=== PATIENT | female | born 1950 | race Caucasian/White ===

== ENCOUNTER 2023-02-19 19:54 | Inpatient (IN) | payer MEDICARE, MEDICAID ==
[2023-02-19] MEDS ORDERED: Acetaminophen 325 MG TAB PO PRN (23:15)
[2023-02-20] MEDS ORDERED: Sodium Chloride 0.9% 1,000 ML IV SCH (00:45)
[2023-02-20] MEDS: Morphine 4 MG/ML VIAL SLOW IVP PRN ×3 (01:11→15:25)
[2023-02-20] MEDS: Ondansetron PF 4 MG/2 ML Vial IVP PRN (01:14)
[2023-02-20 01:51] VITALS: BMI 22.3
[2023-02-20] MEDS: Azithromycin 500 MG in Sodium Chloride 0.9% 250 ML 250 ML IVPB SCH (02:45)
[2023-02-20 06:11] LABS: #Basophils 0.1 thou/uL (0.0-0.2); #Eosinphils 2.8 thou/uL (0.0-0.7); #Neutrophils 10.2 thou/uL (1.40-6.50); %Basophils 0.6 % (0.0-1.0); %Eosinophils 15.4 % (0.0-10.0); %Lymphocytes 15.2 % (21.0-51.0); %Monocytes 11.3 % (0.0-10.0); %Neutrophils 56.9 % (42.0-75.0); Hematocrit 36.9 % (36.0-47.0); Hemoglobin 11.1 g/dL (12.0-16.0); Mean Corpuscular HGB CONC 30.1 g/dL (32.0-36.0); Mean Corpuscular Hemoglobin 27.6 pg (27.0-31.0); Mean Corpuscular Volume 91.8 fl (78.0-98.0); Mean Platelet Volume 9.4 fL (7.4-10.4); Platelet Count 411 10x3/uL (130-400); RBC Distribution Width 14.6 % (11.5-14.5); Red Blood Cell (RBC) Count 4.02 mill/uL (4.20-5.40); White Blood Cell (WBC) Count 17.9 10x3/uL (4.8-10.8)
[2023-02-20 06:59] LABS: Anion Gap 19 mmol/L (10-20); BUN (Urea Nitrogen) 10 mg/dL (9.8-20.1); Calc. Creatinine Clearance 90 mL/min (70-130); Calcium 9.1 mg/dL (7.8-10.44); Carbon Dioxide 24 mmol/L (23-31); Chloride 104 mmol/L (98-107); Estimated GFR 98; Glucose 77 mg/dL (83-110); Magnesium 1.8 mg/dL (1.6-2.6); Potassium 3.7 mmol/L (3.5-5.1); Sodium 143 mmol/L (136-145)
[2023-02-20] MEDS: HYDROcodone/Acetaminophen 7.5/325 mg Tablet PO PRN ×2 (10:41→21:56)
[2023-02-20] MEDS ORDERED: Sodium Bicarbonate 2.5 MEQ/5 ML SDV ONE ×2 (11:37→13:05)
[2023-02-20] MEDS ORDERED: Midazolam HCl 2 mg/2 ml Vial ONE (11:38)
[2023-02-20] MEDS ORDERED: fentaNYL 50 mcg/mL 1 mL Vial ONE (11:38)
[2023-02-20] MEDS ORDERED: Lidocaine 1% PF 5 ML VIAL ONE (11:38)
[2023-02-20] MEDS ORDERED: Lorazepam 2 MG/ML VIAL SLOW IVP SCH (12:00)
[2023-02-20] MEDS ORDERED: Iopamidol 370 76% 100 ML VIAL ONE (12:48)
[2023-02-20] MEDS: cefTRIAXone\\ROCEPHIN 1 GM in Sodium Chloride 0.9% 100 ML IVPB SCH (17:36)
[2023-02-21] MEDS: Azithromycin 500 MG in Sodium Chloride 0.9% 250 ML 250 ML IVPB SCH (02:45)
[2023-02-21 06:39] LABS: #Basophils 0.1 thou/uL (0.0-0.2); #Eosinphils 2.8 thou/uL (0.0-0.7); #Monocytes 1.4 thou/uL (0.11-0.59); #Neutrophils 8.3 thou/uL (1.40-6.50); %Basophils 0.4 % (0.0-1.0); %Eosinophils 19.7 % (0.0-10.0); %Lymphocytes 11.8 % (21.0-51.0); %Monocytes 9.9 % (0.0-10.0); %Neutrophils 57.6 % (42.0-75.0); Hematocrit 33.4 % (36.0-47.0); Hemoglobin 10.1 g/dL (12.0-16.0); Mean Corpuscular HGB CONC 30.2 g/dL (32.0-36.0); Mean Corpuscular Hemoglobin 27.8 pg (27.0-31.0); Mean Platelet Volume 9.5 fL (7.4-10.4); Platelet Count 382 10x3/uL (130-400); RBC Distribution Width 14.4 % (11.5-14.5); Red Blood Cell (RBC) Count 3.63 mill/uL (4.20-5.40); White Blood Cell (WBC) Count 14.3 10x3/uL (4.8-10.8)
[2023-02-21 07:12] LABS: Anion Gap 16 mmol/L (10-20); BUN (Urea Nitrogen) 6 mg/dL (9.8-20.1); Calc. Creatinine Clearance 99 mL/min (70-130); Calcium 8.9 mg/dL (7.8-10.44); Carbon Dioxide 25 mmol/L (23-31); Chloride 103 mmol/L (98-107); Estimated GFR 100; Glucose 70 mg/dL (83-110); Magnesium 1.7 mg/dL (1.6-2.6); Potassium 3.5 mmol/L (3.5-5.1); Sodium 140 mmol/L (136-145)
[2023-02-21] MEDS ORDERED: Lorazepam 2 MG/ML VIAL SLOW IVP SCH (09:00)
[2023-02-21] MEDS ORDERED: Dexamethasone 4 mg/ml Vial SLOW IVP SCH (12:45)
[2023-02-21] MEDS: HYDROcodone/Acetaminophen 7.5/325 mg Tablet PO PRN (14:23)
[2023-02-21] MEDS: cefTRIAXone\\ROCEPHIN 1 GM in Sodium Chloride 0.9% 100 ML IVPB SCH (18:06)
[2023-02-21] MEDS: Ondansetron PF 4 MG/2 ML Vial IVP PRN (21:17)
[2023-02-21] MEDS: Morphine 4 MG/ML VIAL SLOW IVP PRN (21:17)
[2023-02-21] MEDS: Dexamethasone 4 mg/ml Vial SLOW IVP SCH (21:17)
[2023-02-22] MEDS: Azithromycin 500 MG in Sodium Chloride 0.9% 250 ML 250 ML IVPB SCH (02:00)
[2023-02-22 06:55] LABS: #Eosinphils 0.1 thou/uL (0.0-0.7); #Monocytes 0.3 thou/uL (0.11-0.59); #Neutrophils 9.9 thou/uL (1.40-6.50); %Basophils 0.2 % (0.0-1.0); %Eosinophils 0.9 % (0.0-10.0); %Lymphocytes 8.3 % (21.0-51.0); %Monocytes 2.8 % (0.0-10.0); %Neutrophils 87.2 % (42.0-75.0); Hematocrit 32.1 % (36.0-47.0); Hemoglobin 10.1 g/dL (12.0-16.0); Mean Corpuscular HGB CONC 31.5 g/dL (32.0-36.0); Mean Corpuscular Hemoglobin 27.5 pg (27.0-31.0); Mean Corpuscular Volume 87.5 fl (78.0-98.0); Mean Platelet Volume 9.6 fL (7.4-10.4); Platelet Count 361 10x3/uL (130-400); RBC Distribution Width 14.2 % (11.5-14.5); Red Blood Cell (RBC) Count 3.67 mill/uL (4.20-5.40); White Blood Cell (WBC) Count 11.4 10x3/uL (4.8-10.8)
[2023-02-22 07:27] LABS: Anion Gap 13 mmol/L (10-20); BUN (Urea Nitrogen) 5 mg/dL (9.8-20.1); Calc. Creatinine Clearance 93 mL/min (70-130); Calcium 9.1 mg/dL (7.8-10.44); Carbon Dioxide 30 mmol/L (23-31); Chloride 98 mmol/L (98-107); Estimated GFR 99; Glucose 162 mg/dL (83-110); Magnesium 1.5 mg/dL (1.6-2.6); Sodium 138 mmol/L (136-145)
[2023-02-22] MEDS: Dexamethasone 4 mg/ml Vial SLOW IVP SCH ×2 (09:09→19:55)
[2023-02-22] MEDS: HYDROcodone/Acetaminophen 7.5/325 mg Tablet PO PRN ×3 (10:09→19:56)
[2023-02-22] MEDS: cefTRIAXone\\ROCEPHIN 1 GM in Sodium Chloride 0.9% 100 ML IVPB SCH (17:54)
[2023-02-23] MEDS: Melatonin 3 MG TAB PO PRN ×2 (01:37→20:36)
[2023-02-23] MEDS: Azithromycin 500 MG in Sodium Chloride 0.9% 250 ML 250 ML IVPB SCH (01:39)
[2023-02-23] MEDS ORDERED: FLU VACC QS2023(65UP)/MF59C/PF 60 MCG/0.5 ML SYRINGE IM ONE (09:00)
[2023-02-23] MEDS: Morphine 4 MG/ML VIAL SLOW IVP PRN (09:14)
[2023-02-23] MEDS: Dexamethasone 4 mg/ml Vial SLOW IVP SCH ×2 (09:14→20:34)
[2023-02-23] MEDS: HYDROcodone/Acetaminophen 7.5/325 mg Tablet PO PRN ×2 (14:44→20:35)
[2023-02-23] MEDS: cefTRIAXone\\ROCEPHIN 1 GM in Sodium Chloride 0.9% 100 ML IVPB SCH (17:46)
[2023-02-23] MEDS: Famotidine 20 MG TAB PO SCH (20:34)
[2023-02-24] MEDS: Azithromycin 500 MG in Sodium Chloride 0.9% 250 ML 250 ML IVPB SCH (02:22)
[2023-02-24] MEDS: Dexamethasone 4 mg/ml Vial SLOW IVP SCH ×2 (08:46→20:23)
[2023-02-24] MEDS: Famotidine 20 MG TAB PO SCH ×2 (08:46→20:23)
[2023-02-24] MEDS: Morphine 4 MG/ML VIAL SLOW IVP PRN (08:53)
[2023-02-24] MEDS: HYDROcodone/Acetaminophen 7.5/325 mg Tablet PO PRN ×3 (14:22→21:43)
[2023-02-24] MEDS: cefTRIAXone\\ROCEPHIN 1 GM in Sodium Chloride 0.9% 100 ML IVPB SCH (17:33)
[2023-02-24] MEDS: Melatonin 3 MG TAB PO PRN (20:23)
[2023-02-25] MEDS: Azithromycin 500 MG in Sodium Chloride 0.9% 250 ML 250 ML IVPB SCH (02:02)
[2023-02-25 06:03] LABS: #Eosinphils 0.2 thou/uL (0.0-0.7); #Monocytes 1.4 thou/uL (0.11-0.59); #Neutrophils 13.7 thou/uL (1.40-6.50); %Basophils 0.1 % (0.0-1.0); %Lymphocytes 9.5 % (21.0-51.0); %Monocytes 8.4 % (0.0-10.0); %Neutrophils 79.4 % (42.0-75.0); Hematocrit 33.1 % (36.0-47.0); Hemoglobin 10.4 g/dL (12.0-16.0); Mean Corpuscular HGB CONC 31.4 g/dL (32.0-36.0); Mean Corpuscular Hemoglobin 27.6 pg (27.0-31.0); Mean Corpuscular Volume 87.8 fl (78.0-98.0); Mean Platelet Volume 9.3 fL (7.4-10.4); Platelet Count 434 10x3/uL (130-400); RBC Distribution Width 14.4 % (11.5-14.5); Red Blood Cell (RBC) Count 3.77 mill/uL (4.20-5.40); White Blood Cell (WBC) Count 17.2 10x3/uL (4.8-10.8)
[2023-02-25 06:31] LABS: Anion Gap 14 mmol/L (10-20); BUN (Urea Nitrogen) 12 mg/dL (9.8-20.1); Calc. Creatinine Clearance 91 mL/min (70-130); Carbon Dioxide 31 mmol/L (23-31); Chloride 98 mmol/L (98-107); Estimated GFR 99; Glucose 131 mg/dL (83-110); Sodium 140 mmol/L (136-145)
[2023-02-25] MEDS: Famotidine 20 MG TAB PO SCH ×2 (08:38→20:19)
[2023-02-25] MEDS: Dexamethasone 4 mg/ml Vial SLOW IVP SCH ×2 (08:38→20:18)
[2023-02-25] MEDS: Morphine 4 MG/ML VIAL SLOW IVP PRN (08:38)
[2023-02-25] MEDS: HYDROcodone/Acetaminophen 7.5/325 mg Tablet PO PRN ×3 (11:18→20:18)
[2023-02-25 16:33] LABS: Campy jejuni + coli by PCR Negative (Negative); STEC Shiga Toxin 1+2 Negative (Negative); Salmonella spp. by PCR Negative (Negative); Shigella spp + EIEC by PCR Negative (Negative)
[2023-02-25] MEDS: cefTRIAXone\\ROCEPHIN 1 GM in Sodium Chloride 0.9% 100 ML IVPB SCH (17:58)
[2023-02-25] MEDS: Melatonin 3 MG TAB PO PRN (20:19)
[2023-02-26] MEDS: Azithromycin 500 MG in Sodium Chloride 0.9% 250 ML 250 ML IVPB SCH (02:24)
[2023-02-26] MEDS: Ondansetron PF 4 MG/2 ML Vial IVP PRN (08:13)
[2023-02-26] MEDS: Dexamethasone 4 mg/ml Vial SLOW IVP SCH ×2 (08:14→19:57)
[2023-02-26] MEDS: Famotidine 20 MG TAB PO SCH ×2 (08:14→19:57)
[2023-02-26] MEDS: Morphine 4 MG/ML VIAL SLOW IVP PRN (08:33)
[2023-02-26 09:53] LABS: #Eosinphils 0.7 thou/uL (0.0-0.7); #Neutrophils 15.5 thou/uL (1.40-6.50); %Basophils 0.1 % (0.0-1.0); %Eosinophils 3.5 % (0.0-10.0); %Lymphocytes 9.3 % (21.0-51.0); %Monocytes 9.8 % (0.0-10.0); %Neutrophils 76.1 % (42.0-75.0); Hematocrit 34.4 % (36.0-47.0); Mean Corpuscular Hemoglobin 27.8 pg (27.0-31.0); Mean Corpuscular Volume 87.1 fl (78.0-98.0); Mean Platelet Volume 8.8 fL (7.4-10.4); Platelet Count 418 10x3/uL (130-400); RBC Distribution Width 14.6 % (11.5-14.5); Red Blood Cell (RBC) Count 3.95 mill/uL (4.20-5.40); White Blood Cell (WBC) Count 20.4 10x3/uL (4.8-10.8)
[2023-02-26 10:19] LABS: Anion Gap 14 mmol/L (10-20); BUN (Urea Nitrogen) 13 mg/dL (9.8-20.1); Calc. Creatinine Clearance 90 mL/min (70-130); Calcium 8.7 mg/dL (7.8-10.44); Carbon Dioxide 30 mmol/L (23-31); Chloride 98 mmol/L (98-107); Estimated GFR 98; Glucose 110 mg/dL (83-110); Potassium 3.1 mmol/L (3.5-5.1); Sodium 139 mmol/L (136-145)
[2023-02-26] MEDS: HYDROcodone/Acetaminophen 7.5/325 mg Tablet PO PRN ×2 (12:35→19:56)
[2023-02-26] MEDS: cefTRIAXone\\ROCEPHIN 1 GM in Sodium Chloride 0.9% 100 ML IVPB SCH (17:50)
[2023-02-26] MEDS: Melatonin 3 MG TAB PO PRN ×2 (20:22→21:18)
[2023-02-27] MEDS: Azithromycin 500 MG in Sodium Chloride 0.9% 250 ML 250 ML IVPB SCH (02:12)
[2023-02-27 05:50] LABS: #Basophils 0.1 thou/uL (0.0-0.2); #Eosinphils 0.3 thou/uL (0.0-0.7); #Monocytes 1.5 thou/uL (0.11-0.59); #Neutrophils 16.4 thou/uL (1.40-6.50); %Basophils 0.2 % (0.0-1.0); %Eosinophils 1.4 % (0.0-10.0); %Lymphocytes 7.6 % (21.0-51.0); %Monocytes 7.6 % (0.0-10.0); %Neutrophils 81.8 % (42.0-75.0); Hematocrit 34.1 % (36.0-47.0); Hemoglobin 10.8 g/dL (12.0-16.0); Mean Corpuscular HGB CONC 31.7 g/dL (32.0-36.0); Mean Corpuscular Hemoglobin 27.8 pg (27.0-31.0); Mean Corpuscular Volume 87.7 fl (78.0-98.0); Mean Platelet Volume 9.2 fL (7.4-10.4); Platelet Count 388 10x3/uL (130-400); RBC Distribution Width 14.8 % (11.5-14.5); Red Blood Cell (RBC) Count 3.89 mill/uL (4.20-5.40)
[2023-02-27 06:12] LABS: Anion Gap 14 mmol/L (10-20); BUN (Urea Nitrogen) 14 mg/dL (9.8-20.1); Calc. Creatinine Clearance 99 mL/min (70-130); Calcium 8.6 mg/dL (7.8-10.44); Carbon Dioxide 29 mmol/L (23-31); Chloride 99 mmol/L (98-107); Estimated GFR 100; Glucose 128 mg/dL (83-110); Potassium 3.3 mmol/L (3.5-5.1); Sodium 139 mmol/L (136-145)
[2023-02-27] MEDS: Dexamethasone 4 mg/ml Vial SLOW IVP SCH ×2 (08:06→20:15)
[2023-02-27] MEDS: Famotidine 20 MG TAB PO SCH ×2 (08:06→20:14)
[2023-02-27] MEDS: Morphine 4 MG/ML VIAL SLOW IVP PRN (08:21)
[2023-02-27] MEDS: HYDROcodone/Acetaminophen 7.5/325 mg Tablet PO PRN ×3 (10:55→20:14)
[2023-02-27] MEDS: cefTRIAXone\\ROCEPHIN 1 GM in Sodium Chloride 0.9% 100 ML IVPB SCH (17:17)
[2023-02-27] MEDS: Melatonin 3 MG TAB PO PRN (20:14)
[2023-02-28] MEDS: Azithromycin 500 MG in Sodium Chloride 0.9% 250 ML 250 ML IVPB SCH (02:57)
[2023-02-28] MEDS: Dexamethasone 4 mg/ml Vial SLOW IVP SCH ×2 (08:44→21:18)
[2023-02-28] MEDS: Famotidine 20 MG TAB PO SCH ×2 (08:44→21:16)
[2023-02-28] MEDS: Morphine 4 MG/ML VIAL SLOW IVP PRN (08:46)
[2023-02-28] MEDS: HYDROcodone/Acetaminophen 7.5/325 mg Tablet PO PRN ×3 (09:57→21:17)
[2023-02-28] MEDS: cefTRIAXone\\ROCEPHIN 1 GM in Sodium Chloride 0.9% 100 ML IVPB SCH (17:25)
[2023-02-28] MEDS: Ondansetron PF 4 MG/2 ML Vial IVP PRN (19:09)
[2023-02-28] MEDS: Melatonin 3 MG TAB PO PRN (21:16)
[2023-03-01] MEDS: Azithromycin 500 MG in Sodium Chloride 0.9% 250 ML 250 ML IVPB SCH (03:05)
[2023-03-01] MEDS: Famotidine 20 MG TAB PO SCH ×2 (09:16→21:14)
[2023-03-01] MEDS: Dexamethasone 4 MG TAB PO SCH ×2 (09:16→21:14)
[2023-03-01] MEDS: Morphine 4 MG/ML VIAL SLOW IVP PRN ×3 (09:16→21:15)
[2023-03-01] MEDS: HYDROcodone/Acetaminophen 7.5/325 mg Tablet PO PRN (12:25)
[2023-03-01] MEDS ORDERED: Cyclobenzaprine 10 MG TAB PO PRN (12:41)
[2023-03-01] MEDS: Melatonin 3 MG TAB PO PRN (21:14)
[2023-03-02] MEDS: LevoFLOXacin 750 MG TAB PO SCH (05:28)
[2023-03-02] MEDS: Famotidine 20 MG TAB PO SCH ×2 (08:53→20:36)
[2023-03-02] MEDS: Dexamethasone 4 MG TAB PO SCH ×2 (08:53→20:35)
[2023-03-02] MEDS: HYDROcodone/Acetaminophen 7.5/325 mg Tablet PO PRN ×3 (08:55→21:46)
[2023-03-02] MEDS: Morphine 4 MG/ML VIAL SLOW IVP PRN (11:22)
[2023-03-02] MEDS: Melatonin 3 MG TAB PO PRN (21:46)
[2023-03-03] MEDS: LevoFLOXacin 750 MG TAB PO SCH (05:41)
[2023-03-03] MEDS: HYDROcodone/Acetaminophen 7.5/325 mg Tablet PO PRN ×3 (06:36→20:52)
[2023-03-03] MEDS: Dexamethasone 4 MG TAB PO SCH ×2 (08:31→20:51)
[2023-03-03] MEDS: Famotidine 20 MG TAB PO SCH ×2 (08:31→20:51)
[2023-03-03] MEDS: Morphine 4 MG/ML VIAL SLOW IVP PRN ×3 (11:18→23:43)
[2023-03-03] MEDS: Melatonin 3 MG TAB PO PRN (20:51)
[2023-03-04 06:08] LABS: #Basophils 0.1 thou/uL (0.0-0.2); #Eosinphils 0.2 thou/uL (0.0-0.7); #Monocytes 1.4 thou/uL (0.11-0.59); %Basophils 0.3 % (0.0-1.0); %Eosinophils 1.1 % (0.0-10.0); %Lymphocytes 5.6 % (21.0-51.0); %Monocytes 7.1 % (0.0-10.0); %Neutrophils 84.2 % (42.0-75.0); Hematocrit 35.6 % (36.0-47.0); Hemoglobin 11.4 g/dL (12.0-16.0); Mean Corpuscular Hemoglobin 27.9 pg (27.0-31.0); Mean Corpuscular Volume 87.3 fl (78.0-98.0); Mean Platelet Volume 9.7 fL (7.4-10.4); Platelet Count 356 10x3/uL (130-400); RBC Distribution Width 16.1 % (11.5-14.5); Red Blood Cell (RBC) Count 4.08 mill/uL (4.20-5.40); White Blood Cell (WBC) Count 20.2 10x3/uL (4.8-10.8)
[2023-03-04 06:51] LABS: Anion Gap 16 mmol/L (10-20); BUN (Urea Nitrogen) 18 mg/dL (9.8-20.1); Calc. Creatinine Clearance 97 mL/min (70-130); Calcium 9.1 mg/dL (7.8-10.44); Carbon Dioxide 26 mmol/L (23-31); Chloride 98 mmol/L (98-107); Estimated GFR 100; Glucose 114 mg/dL (83-110); Potassium 4.3 mmol/L (3.5-5.1); Sodium 136 mmol/L (136-145)
[2023-03-04] MEDS: Famotidine 20 MG TAB PO SCH ×2 (09:07→20:07)
[2023-03-04] MEDS: Dexamethasone 4 MG TAB PO SCH ×2 (09:07→20:07)
[2023-03-04] MEDS ORDERED: Senokot S 8.6-50 MG TAB PO PRN (09:48)
[2023-03-04] MEDS: Morphine 4 MG/ML VIAL SLOW IVP PRN (10:50)
[2023-03-04] MEDS: HYDROcodone/Acetaminophen 7.5/325 mg Tablet PO PRN ×2 (12:31→20:07)
[2023-03-04] MEDS: Melatonin 3 MG TAB PO PRN (20:07)
[2023-03-05] MEDS: Famotidine 20 MG TAB PO SCH ×2 (08:45→20:06)
[2023-03-05] MEDS: Dexamethasone 4 MG TAB PO SCH ×2 (08:45→20:05)
[2023-03-05] MEDS: Morphine 4 MG/ML VIAL SLOW IVP PRN (08:54)
[2023-03-05] MEDS: HYDROcodone/Acetaminophen 7.5/325 mg Tablet PO PRN ×2 (13:38→18:37)
[2023-03-06] MEDS: Morphine 4 MG/ML VIAL SLOW IVP PRN ×2 (06:05→21:03)
[2023-03-06] MEDS: Famotidine 20 MG TAB PO SCH ×2 (08:45→21:02)
[2023-03-06] MEDS: Dexamethasone 4 MG TAB PO SCH ×2 (08:45→21:02)
[2023-03-06] MEDS: HYDROcodone/Acetaminophen 7.5/325 mg Tablet PO PRN ×2 (08:52→18:35)
[2023-03-06] MEDS: Melatonin 3 MG TAB PO PRN (21:02)
[2023-03-07] MEDS: Famotidine 20 MG TAB PO SCH ×2 (08:58→20:45)
[2023-03-07] MEDS: Dexamethasone 4 MG TAB PO SCH (08:58)
[2023-03-07] MEDS: HYDROcodone/Acetaminophen 7.5/325 mg Tablet PO PRN ×2 (09:11→17:35)
[2023-03-07] MEDS: Morphine 4 MG/ML VIAL SLOW IVP PRN ×2 (14:47→20:59)
[2023-03-07] MEDS: Dexamethasone 1 MG TAB PO SCH (17:35)
[2023-03-07] MEDS: Melatonin 3 MG TAB PO PRN (21:03)
[2023-03-08] MEDS: Morphine 4 MG/ML VIAL SLOW IVP PRN ×3 (06:02→20:47)
[2023-03-08] MEDS: Dexamethasone 1 MG TAB PO SCH ×2 (09:45→16:35)
[2023-03-08] MEDS: Famotidine 20 MG TAB PO SCH ×2 (09:45→20:47)
[2023-03-08] MEDS: HYDROcodone/Acetaminophen 7.5/325 mg Tablet PO PRN (16:31)
[2023-03-08] MEDS: Melatonin 3 MG TAB PO PRN (20:47)
[2023-03-09] MEDS: HYDROcodone/Acetaminophen 7.5/325 mg Tablet PO PRN ×2 (05:52→18:24)
[2023-03-09] MEDS: Dexamethasone 1 MG TAB PO SCH ×2 (09:08→17:45)
[2023-03-09] MEDS: Famotidine 20 MG TAB PO SCH ×2 (09:08→20:20)
[2023-03-09] MEDS: Sodium Chloride 0.9% 1,000 ML IV SCH (17:45)
[2023-03-09 18:34] LABS: #Basophils 0.1 thou/uL (0.0-0.2); #Monocytes 2.3 thou/uL (0.11-0.59); #Neutrophils 19.9 thou/uL (1.40-6.50); %Basophils 0.2 % (0.0-1.0); %Eosinophils 3.9 % (0.0-10.0); %Lymphocytes 3.2 % (21.0-51.0); %Monocytes 9.4 % (0.0-10.0); %Neutrophils 81.7 % (42.0-75.0); Hematocrit 37.2 % (36.0-47.0); Hemoglobin 12.2 g/dL (12.0-16.0); Mean Corpuscular HGB CONC 32.8 g/dL (32.0-36.0); Mean Corpuscular Hemoglobin 28.7 pg (27.0-31.0); Mean Corpuscular Volume 87.5 fl (78.0-98.0); Mean Platelet Volume 9.2 fL (7.4-10.4); Platelet Count 343 10x3/uL (130-400); RBC Distribution Width 17.1 % (11.5-14.5); Red Blood Cell (RBC) Count 4.25 mill/uL (4.20-5.40); White Blood Cell (WBC) Count 24.4 10x3/uL (4.8-10.8)
[2023-03-09 18:56] LABS: ALT (SGPT) 53 U/L (8-55); AST (SGOT) 22 U/L (5-34); Albumin 3.5 g/dL (3.4-4.8); Alkaline Phosphatase 130 U/L (40-110); Anion Gap 16 mmol/L (10-20); BUN (Urea Nitrogen) 19 mg/dL (9.8-20.1); Bilirubin, Total 0.3 mg/dL (0.2-1.2); Calc. Creatinine Clearance 78 mL/min (70-130); Calcium 9.3 mg/dL (7.8-10.44); Carbon Dioxide 27 mmol/L (23-31); Chloride 95 mmol/L (98-107); Estimated GFR 95; Globulin 3.2 g/dL (2.4-3.5); Glucose 127 mg/dL (83-110); Magnesium 1.9 mg/dL (1.6-2.6); Potassium 4.5 mmol/L (3.5-5.1); Protein, Total 6.7 g/dL (5.8-8.1); Sodium 133 mmol/L (136-145)
[2023-03-10] MEDS: Dexamethasone 1 MG TAB PO SCH ×2 (10:15→16:28)
[2023-03-10] MEDS: Famotidine 20 MG TAB PO SCH ×2 (10:15→20:30)
[2023-03-10] MEDS: HYDROcodone/Acetaminophen 7.5/325 mg Tablet PO PRN ×3 (10:54→20:30)
[2023-03-10] MEDS: Sodium Chloride 0.9% 1,000 ML IV SCH (11:52)
[2023-03-10] MEDS: LevoFLOXacin 500 mg/D5W 500 MG in Premix 1 BAG IVPB SCH (14:26)
[2023-03-11] MEDS: HYDROcodone/Acetaminophen 7.5/325 mg Tablet PO PRN ×3 (08:21→20:14)
[2023-03-11] MEDS: Dexamethasone 1 MG TAB PO SCH ×2 (08:21→16:32)
[2023-03-11] MEDS: Famotidine 20 MG TAB PO SCH ×2 (08:21→20:11)
[2023-03-11] MEDS: Sodium Chloride 0.9% 1,000 ML IV SCH (09:30)
[2023-03-11 09:34] LABS: #Basophils 0.1 thou/uL (0.0-0.2); #Eosinphils 2.1 thou/uL (0.0-0.7); #Monocytes 1.3 thou/uL (0.11-0.59); #Neutrophils 11.8 thou/uL (1.40-6.50); %Basophils 0.3 % (0.0-1.0); %Eosinophils 12.3 % (0.0-10.0); %Neutrophils 70.1 % (42.0-75.0); Hematocrit 36.3 % (36.0-47.0); Hemoglobin 11.3 g/dL (12.0-16.0); Mean Corpuscular HGB CONC 31.1 g/dL (32.0-36.0); Mean Corpuscular Hemoglobin 28.5 pg (27.0-31.0); Mean Corpuscular Volume 91.7 fl (78.0-98.0); Mean Platelet Volume 9.1 fL (7.4-10.4); Platelet Count 256 10x3/uL (130-400); RBC Distribution Width 17.5 % (11.5-14.5); Red Blood Cell (RBC) Count 3.96 mill/uL (4.20-5.40); White Blood Cell (WBC) Count 16.8 10x3/uL (4.8-10.8)
[2023-03-11 09:55] LABS: Anion Gap 14 mmol/L (10-20); BUN (Urea Nitrogen) 14 mg/dL (9.8-20.1); Calc. Creatinine Clearance 99 mL/min (70-130); Calcium 8.7 mg/dL (7.8-10.44); Carbon Dioxide 24 mmol/L (23-31); Chloride 100 mmol/L (98-107); Estimated GFR 100; Glucose 85 mg/dL (83-110); Sodium 134 mmol/L (136-145)
[2023-03-11] MEDS: LevoFLOXacin 500 mg/D5W 500 MG in Premix 1 BAG IVPB SCH (13:12)
[2023-03-12] MEDS: Sodium Chloride 0.9% 1,000 ML IV SCH (06:21)
[2023-03-12] MEDS: Dexamethasone 1 MG TAB PO SCH ×2 (09:07→17:49)
[2023-03-12] MEDS: Famotidine 20 MG TAB PO SCH ×2 (09:08→19:53)
[2023-03-12] MEDS: HYDROcodone/Acetaminophen 7.5/325 mg Tablet PO PRN ×3 (09:15→19:53)
[2023-03-12] MEDS: LevoFLOXacin 500 mg/D5W 500 MG in Premix 1 BAG IVPB SCH (13:03)
[2023-03-13] MEDS: Sodium Chloride 0.9% 1,000 ML IV SCH ×2 (02:54→20:15)
[2023-03-13] MEDS: HYDROcodone/Acetaminophen 7.5/325 mg Tablet PO PRN ×4 (06:04→20:16)
[2023-03-13] MEDS: Famotidine 20 MG TAB PO SCH ×2 (08:56→20:16)
[2023-03-13] MEDS: Dexamethasone 1 MG TAB PO SCH ×2 (08:56→17:31)
[2023-03-13] MEDS: LevoFLOXacin 500 mg/D5W 500 MG in Premix 1 BAG IVPB SCH (13:32)
[2023-03-13] MEDS: Melatonin 3 MG TAB PO PRN (21:31)
[2023-03-14] MEDS: Dexamethasone 1 MG TAB PO SCH ×2 (07:33→17:25)
[2023-03-14] MEDS: Famotidine 20 MG TAB PO SCH ×2 (07:33→20:49)
[2023-03-14] MEDS: HYDROcodone/Acetaminophen 7.5/325 mg Tablet PO PRN ×4 (07:33→21:42)
[2023-03-14 08:38] LABS: #Eosinphils 0.6 thou/uL (0.0-0.7); #Monocytes 1.1 thou/uL (0.11-0.59); #Neutrophils 11.7 thou/uL (1.40-6.50); %Basophils 0.1 % (0.0-1.0); %Eosinophils 4.4 % (0.0-10.0); %Monocytes 7.6 % (0.0-10.0); %Neutrophils 80.9 % (42.0-75.0); Hematocrit 32.1 % (36.0-47.0); Hemoglobin 10.2 g/dL (12.0-16.0); Mean Corpuscular HGB CONC 31.8 g/dL (32.0-36.0); Mean Corpuscular Hemoglobin 28.5 pg (27.0-31.0); Mean Corpuscular Volume 89.7 fl (78.0-98.0); Mean Platelet Volume 8.8 fL (7.4-10.4); Platelet Count 288 10x3/uL (130-400); RBC Distribution Width 17.6 % (11.5-14.5); Red Blood Cell (RBC) Count 3.58 mill/uL (4.20-5.40); White Blood Cell (WBC) Count 14.5 10x3/uL (4.8-10.8)
[2023-03-14 09:03] LABS: ALT (SGPT) 31 U/L (8-55); AST (SGOT) 12 U/L (5-34); Albumin 2.9 g/dL (3.4-4.8); Alkaline Phosphatase 118 U/L (40-110); Anion Gap 15 mmol/L (10-20); BUN (Urea Nitrogen) 14 mg/dL (9.8-20.1); Bilirubin, Total 0.2 mg/dL (0.2-1.2); Calc. Creatinine Clearance 95 mL/min (70-130); Calcium 9.1 mg/dL (7.8-10.44); Carbon Dioxide 24 mmol/L (23-31); Chloride 100 mmol/L (98-107); Estimated GFR 99; Globulin 3.1 g/dL (2.4-3.5); Glucose 123 mg/dL (83-110); Sodium 135 mmol/L (136-145)
[2023-03-14] MEDS: Melatonin 3 MG TAB PO PRN (20:49)
[2023-03-15] MEDS: HYDROcodone/Acetaminophen 7.5/325 mg Tablet PO PRN ×4 (07:06→20:52)
[2023-03-15] MEDS: LevoFLOXacin 500 MG TAB PO SCH (07:06)
[2023-03-15] MEDS: Dexamethasone 1 MG TAB PO SCH ×2 (08:44→17:07)
[2023-03-15] MEDS: Famotidine 20 MG TAB PO SCH ×2 (08:44→20:52)
[2023-03-15] MEDS: Melatonin 3 MG TAB PO PRN (20:52)
[2023-03-16] MEDS: HYDROcodone/Acetaminophen 7.5/325 mg Tablet PO PRN ×4 (07:03→20:38)
[2023-03-16] MEDS: LevoFLOXacin 500 MG TAB PO SCH (07:03)
[2023-03-16] MEDS: Dexamethasone 1 MG TAB PO SCH ×2 (08:48→17:28)
[2023-03-16] MEDS: Famotidine 20 MG TAB PO SCH ×2 (08:48→20:38)
[2023-03-16] MEDS: Melatonin 3 MG TAB PO PRN (20:38)
[2023-03-17] MEDS: Dexamethasone 1 MG TAB PO SCH ×2 (08:33→15:43)
[2023-03-17] MEDS: Famotidine 20 MG TAB PO SCH ×2 (08:33→20:03)
[2023-03-17] MEDS: HYDROcodone/Acetaminophen 7.5/325 mg Tablet PO PRN ×3 (10:00→20:04)
[2023-03-17] MEDS: Melatonin 3 MG TAB PO PRN (20:04)
[2023-03-18] MEDS: Dexamethasone 1 MG TAB PO SCH (09:08)
[2023-03-18] MEDS: Famotidine 20 MG TAB PO SCH (09:08)
[2023-03-18] MEDS: HYDROcodone/Acetaminophen 7.5/325 mg Tablet PO PRN (11:50)
[2023-03-18 14:23] VITALS: BP 92/60; TEMP 98.1
== END 2023-03-18 15:09 | DRG 478 ==
LOC: T4-A 22:06
PROVIDERS: ADMIT Internal Medicine; ATTEND Family Medicine
PROC: 0QB23ZX Excision of Right Pelvic Bone, Percutaneous Approach, Diagnostic (ICD-10-PCS; principal; 2023-02-20)
DX: C79.51 Secondary malignant neoplasm of bone (principal); C34.12 Malignant neoplasm of upper lobe, left bronchus or lung; C78.7 Secondary malignant neoplasm of liver and intrahepatic bile duct; C79.49 Secondary malignant neoplasm of other parts of nervous system; M84.48XA Pathological fracture, other site, initial encounter for fracture; Z79.899 Other long term (current) drug therapy; Z87.891 Personal history of nicotine dependence; D72.829 Elevated white blood cell count, unspecified; M48.04 Spinal stenosis, thoracic region; Z51.5 Encounter for palliative care
CPT/HCPCS: 20225; 36415; 70450; 70553; 71045; 71260; 72148; 72157; 74177; 77012; 77014; 77280; 77290; 77306; 77332; 77334; 77412; 80048; 80053; 81001; 83605; 83735; 83880; 84145; 84484; 85025; 85610; 87040; 87086; 87505; 88305; 88307; 88333; 88334; 88341; 88342; 93005; 93010; J0456; J0696; J1100; J1956; J2060; J2250; J2270; J2405; J3010; J3490; J7050; J8540; Q9967

== ENCOUNTER 2023-04-12 22:21 | Emergency (ER) | payer MEDICARE, MEDICAID ==
[2023-04-12 23:35] LABS: Hematocrit 28.9 % (36.0-47.0); Hemoglobin 8.9 g/dL (12.0-16.0); Manual Diff?? YES; Mean Corpuscular HGB CONC 30.8 g/dL (32.0-36.0); Mean Corpuscular Hemoglobin 28.1 pg (27.0-31.0); Mean Corpuscular Volume 91.2 fl (78.0-98.0); Mean Platelet Volume 8.9 fL (7.4-10.4); Platelet Count 332 10x3/uL (130-400); RBC Distribution Width 16.1 % (11.5-14.5); Red Blood Cell (RBC) Count 3.17 mill/uL (4.20-5.40); White Blood Cell (WBC) Count 14.9 10x3/uL (4.8-10.8)
[2023-04-12 23:39] LABS: Delete Auto Diff?? YES
[2023-04-12 23:52] LABS: ALT (SGPT) 12 U/L (8-55); AST (SGOT) 12 U/L (5-34); Albumin 2.6 g/dL (3.4-4.8); Alkaline Phosphatase 134 U/L (40-110); Anion Gap 18 mmol/L (10-20); BUN (Urea Nitrogen) 16 mg/dL (9.8-20.1); Bilirubin, Total 0.4 mg/dL (0.2-1.2); Calc. Creatinine Clearance 0 mL/min (70-130); Calcium 9.9 mg/dL (7.8-10.44); Carbon Dioxide 28 mmol/L (23-31); Chloride 93 mmol/L (98-107); Estimated GFR 102; Globulin 3.3 g/dL (2.4-3.5); Glucose 125 mg/dL (83-110); Potassium 3.3 mmol/L (3.5-5.1); Protein, Total 5.9 g/dL (5.8-8.1); Sodium 136 mmol/L (136-145)
[2023-04-12 23:54] LABS: Troponin I Less than 0.010 ng/mL (< 0.028)
[2023-04-13 00:58] LABS: Band 12 % (5-11); Eosinophils 4 % (0-10); Lymphocytes 15 % (21-51); Monocytes 3 % (0-10); Neutrophil 66 % (42-75)
[2023-04-13] MEDS ORDERED: fentaNYL 50 mcg/mL 1 mL Vial ONE (02:48)
[2023-04-13 04:53] LABS: SARS-CoV-2 NAA Rapid Test Not Detected (NotDetected)
[2023-04-13] MEDS ORDERED: Iopamidol 370 76% 100 ML VIAL ONE (09:13)
== END 2023-04-13 06:43 | disposition home or self-care (01) ==
LOC: ERS 22:21
DX: J06.9 Acute upper respiratory infection, unspecified (principal); R07.9 Chest pain, unspecified; C34.90 Malignant neoplasm of unspecified part of unspecified bronchus or lung; Z87.891 Personal history of nicotine dependence
CPT/HCPCS: 0240U; 71045; 71275; 80053; 84484; 85025; 93005; J3010; 36415; 96374; Q9967

== ENCOUNTER 2023-04-17 15:20 | Inpatient (IN) | payer MEDICAID, MEDICARE ==
[2023-04-17 16:49] LABS: #Eosinphils 0.7 thou/uL (0.0-0.7); #Monocytes 1.5 thou/uL (0.11-0.59); #Neutrophils 15.5 thou/uL (1.40-6.50); %Basophils 0.2 % (0.0-1.0); %Eosinophils 3.7 % (0.0-10.0); %Lymphocytes 6.1 % (21.0-51.0); %Monocytes 7.5 % (0.0-10.0); %Neutrophils 78.1 % (42.0-75.0); Hematocrit 31.8 % (36.0-47.0); Hemoglobin 9.9 g/dL (12.0-16.0); Mean Corpuscular HGB CONC 31.1 g/dL (32.0-36.0); Mean Corpuscular Volume 90.1 fl (78.0-98.0); Mean Platelet Volume 9.1 fL (7.4-10.4); Platelet Count 324 10x3/uL (130-400); RBC Distribution Width 17.1 % (11.5-14.5); Red Blood Cell (RBC) Count 3.53 mill/uL (4.20-5.40); White Blood Cell (WBC) Count 19.9 10x3/uL (4.8-10.8)
[2023-04-17 17:02] LABS: INR-International Normal Ratio 1.2; PTT 27.5 sec (22.9-36.1); Prothrombin Time 15.2 sec (12.0-14.7)
[2023-04-17 17:11] LABS: ALT (SGPT) 7 U/L (8-55); AST (SGOT) 10 U/L (5-34); Albumin 2.7 g/dL (3.4-4.8); Alkaline Phosphatase 137 U/L (40-110); Anion Gap 19 mmol/L (10-20); BUN (Urea Nitrogen) 12 mg/dL (9.8-20.1); Bilirubin, Total 0.3 mg/dL (0.2-1.2); Calc. Creatinine Clearance 0 mL/min (70-130); Calcium 10.6 mg/dL (7.8-10.44); Carbon Dioxide 27 mmol/L (23-31); Chloride 99 mmol/L (98-107); Estimated GFR 103; Globulin 3.6 g/dL (2.4-3.5); Glucose 97 mg/dL (83-110); Protein, Total 6.3 g/dL (5.8-8.1); Sodium 142 mmol/L (136-145)
[2023-04-17] MEDS ORDERED: Cefepime 2 GM VIAL ONE (18:39)
[2023-04-17] MEDS ORDERED: Sodium Chloride 0.9% 100 ML ONE (18:39)
[2023-04-17] MEDS ORDERED: Potassium Chloride 20 MEQ (100 mL) BAG ONE (18:39)
[2023-04-17] MEDS ORDERED: Vancomycin (BATCH) 1.5 GM in Premix 1 BAG IVPB SCH (19:00)
[2023-04-17 19:07] LABS: SARS-CoV-2 NAA Rapid Test Not Detected (NotDetected)
[2023-04-17] MEDS ORDERED: Acetaminophen 650 MG Suppository PR PRN (19:43)
[2023-04-17] MEDS ORDERED: Ondansetron ODT 4 MG TAB PO PRN (19:43)
[2023-04-17] MEDS ORDERED: Ondansetron PF 4 MG/2 ML Vial IVP PRN (19:43)
[2023-04-17] MEDS ORDERED: Acetaminophen 325 MG TAB PO PRN (19:43)
[2023-04-17] MEDS ORDERED: Sodium Chloride 0.9% 1,000 ML IV SCH (19:45)
[2023-04-17] MEDS ORDERED: Magnesium 2 GM/50 ML(in water) 2 GM in Premix 1 BAG IVPB SCH (20:30)
[2023-04-17] MEDS ORDERED: Electrolyte Replacement Protocol 1 EACH FS SCH (20:30)
[2023-04-17] MEDS: Heparin 5,000 UNITS/ML VIAL SC SCH (23:17)
[2023-04-17] MEDS: guaiFENesin ER 600 MG TAB PO SCH (23:17)
[2023-04-17] MEDS: Benzonatate 100 MG CAP PO PRN (23:17)
[2023-04-17] MEDS: Famotidine 20 MG TAB PO SCH (23:17)
[2023-04-17] MEDS: Ipratropium/Albuterol 3 ML NEB NEB SCH (23:56)
[2023-04-18 01:19] VITALS: BMI 19.6
[2023-04-18 04:11] LABS: #Basophils 0.1 thou/uL (0.0-0.2); #Eosinphils 0.7 thou/uL (0.0-0.7); #Monocytes 1.5 thou/uL (0.11-0.59); #Neutrophils 14.6 thou/uL (1.40-6.50); %Basophils 0.7 % (0.0-1.0); %Eosinophils 3.6 % (0.0-10.0); %Lymphocytes 7.2 % (21.0-51.0); %Monocytes 7.9 % (0.0-10.0); %Neutrophils 74.6 % (42.0-75.0); Hematocrit 32.4 % (36.0-47.0); Hemoglobin 9.4 g/dL (12.0-16.0); Manual Diff?? YES; Mean Corpuscular Hemoglobin 27.5 pg (27.0-31.0); Mean Platelet Volume 9.3 fL (7.4-10.4); Platelet Count 282 10x3/uL (130-400); RBC Distribution Width 17.4 % (11.5-14.5); Red Blood Cell (RBC) Count 3.42 mill/uL (4.20-5.40); White Blood Cell (WBC) Count 19.6 10x3/uL (4.8-10.8)
[2023-04-18 04:49] LABS: Chloride 106 mmol/L (98-107); Potassium 3.9 mmol/L (3.5-5.1); Sodium 141 mmol/L (136-145)
[2023-04-18 04:50] LABS: Glucose 99 mg/dL (83-110)
[2023-04-18 04:52] LABS: Anion Gap 17 mmol/L (10-20); Carbon Dioxide 22 mmol/L (23-31); Mean Corpuscular Volume 94.7 fl (78.0-98.0)
[2023-04-18 04:54] LABS: Calc. Creatinine Clearance 95 mL/min (70-130); Estimated GFR 103
[2023-04-18 04:55] LABS: BUN (Urea Nitrogen) 14 mg/dL (9.8-20.1)
[2023-04-18 05:48] LABS: Anisocytosis SLIGHT = 6-15 cells HPF (0-5); Band 4 % (5-11); CellaVision Operator ID LAB.NR; Eosinophils 4 % (0-10); Hypochromia MODERATE=16-30 cells HPF (0-5); Lymphocytes 2 % (21-51); Microcytosis SLIGHT = 6-15 cells HPF (0-5); Monocytes 6 % (0-10); Neutrophil 83 % (42-75); Nucleated RBC (Manual Ct) 2 % (0); Platelet Adequacy Comment Platelets Decreased; Polychromasia SLIGHT = 2-3 cells HPF (0-2); Total Cell Count 101; Vacuoles SLIGHT
[2023-04-18 06:10] LABS: Bilirubin Negative (Negative); Blood, Urine Negative (Negative); CAUTI Indications for Culture Alt mental st,lethar; Clarity Clear (Clear); Glucose, Urine (Dipstick) Normal (Negative); Ketone, Urine 40 mg/dL (Negative); Leukocyte Negative Leu/uL (Negative); Nitrite Negative (Negative); Protein, Urine (Dipstick) 30 mg/dL (Neg-Trace); RBC/HPF 0-3 HPF (0-3); Specific Gravity, Urine 1.035 (1.002-1.036); Squamous Epithelial 0-3 HPF (0-3); Urobilinogen Normal mg/dL (Less than 2); WBC/HPF 0-3 HPF (0-3); pH, Urine 5.5 (5.0-9.0)
[2023-04-18] MEDS: Ipratropium/Albuterol 3 ML NEB NEB SCH ×3 (08:30→18:50)
[2023-04-18 08:42] LABS: Bacteria/HPF 1+ HPF (None Seen)
[2023-04-18 08:43] LABS: Urine Culture Reflex No No
[2023-04-18] MEDS: Cefepime 2 GM in Sodium Chloride 0.9% 100 ML IVPB SCH ×2 (10:10→20:28)
[2023-04-18] MEDS: Vancomycin 1 GM in Premix 1 BAG IVPB SCH ×2 (10:13→21:21)
[2023-04-18] MEDS: Famotidine 20 MG TAB PO SCH ×2 (10:14→21:01)
[2023-04-18] MEDS: Heparin 5,000 UNITS/ML VIAL SC SCH ×3 (10:14→21:01)
[2023-04-18] MEDS: guaiFENesin ER 600 MG TAB PO SCH ×2 (10:14→21:01)
[2023-04-18] MEDS ORDERED: Magnevist 469MG/ML 20 ML VIAL ONE (10:18)
[2023-04-18] MEDS ORDERED: Senokot S 8.6-50 MG TAB PO PRN (11:04)
[2023-04-18] MEDS ORDERED: guaiFENesin/Codeine 200 mg/20 mg 10 ml Cup PO PRN (11:04)
[2023-04-18] MEDS: Sodium Chloride 0.9% 1,000 ML IV SCH (12:41)
[2023-04-18] MEDS: Morphine IR 10 MG/5 ML UDCUP PO PRN (13:25)
[2023-04-18] MEDS ORDERED: Lorazepam 2 MG/ML VIAL SLOW IVP SCH (13:45)
[2023-04-18] MEDS: Fluticasone Propionate Nasal Spray 16 gm Bottle NASAL SCH (21:26)
[2023-04-19] MEDS: Ipratropium/Albuterol 3 ML NEB NEB SCH ×4 (00:07→19:10)
[2023-04-19] MEDS: Benzonatate 100 MG CAP PO PRN (06:51)
[2023-04-19 07:24] LABS: Hematocrit 29.7 % (36.0-47.0); Hemoglobin 8.7 g/dL (12.0-16.0); Manual Diff?? YES; Mean Corpuscular HGB CONC 29.3 g/dL (32.0-36.0); Mean Corpuscular Hemoglobin 27.7 pg (27.0-31.0); Mean Corpuscular Volume 94.6 fl (78.0-98.0); Mean Platelet Volume 9.4 fL (7.4-10.4); Platelet Count 288 10x3/uL (130-400); RBC Distribution Width 17.1 % (11.5-14.5); Red Blood Cell (RBC) Count 3.14 mill/uL (4.20-5.40); White Blood Cell (WBC) Count 18.8 10x3/uL (4.8-10.8)
[2023-04-19 07:42] LABS: Delete Auto Diff?? YES
[2023-04-19 07:51] LABS: Vancomycin, Trough 17.3 ug/mL
[2023-04-19] MEDS: Vancomycin 1 GM in Premix 1 BAG IVPB SCH (09:05)
[2023-04-19 09:06] LABS: Anisocytosis SLIGHT = 6-15 cells HPF (0-5); Band 5 % (5-11); CellaVision Operator ID LAB.NR; Eosinophils 1 % (0-10); Hypochromia SLIGHT = 6-15 cells HPF (0-5); Large Platelets 1.1 % (0-5); Lymphocytes 9 % (21-51); Microcytosis SLIGHT = 6-15 cells HPF (0-5); Monocytes 8 % (0-10); Neutrophil 78 % (42-75); Nucleated RBC (Manual Ct) 1 % (0); Platelet Adequacy Comment Platelets Normal; Platelet Clumps 1.1 % (0-5); Polychromasia SLIGHT = 2-3 cells HPF (0-2); Smudge Cells 13.5 %; Total Cell Count 89
[2023-04-19] MEDS: guaiFENesin ER 600 MG TAB PO SCH ×2 (09:29→20:05)
[2023-04-19] MEDS: Cefepime 2 GM in Sodium Chloride 0.9% 100 ML IVPB SCH ×2 (09:31→19:47)
[2023-04-19] MEDS: Sodium Chloride 0.9% 1,000 ML IV SCH (09:32)
[2023-04-19 10:28] LABS: Anion Gap 16 mmol/L (10-20); BUN (Urea Nitrogen) 8 mg/dL (9.8-20.1); CRP (Inflammatory) 28.03 mg/dL (= or < 0.5); Calc. Creatinine Clearance 100 mL/min (70-130); Calcium 9.3 mg/dL (7.8-10.44); Carbon Dioxide 25 mmol/L (23-31); Chloride 100 mmol/L (98-107); Estimated GFR 104; Glucose 60 mg/dL (83-110); Potassium 2.3 mmol/L (3.5-5.1); Sodium 139 mmol/L (136-145)
[2023-04-19] MEDS: Heparin 5,000 UNITS/ML VIAL SC SCH ×3 (10:29→20:05)
[2023-04-19] MEDS: Morphine ER 15 MG TAB PO SCH ×3 (10:30→20:04)
[2023-04-19] MEDS: Fluticasone Propionate Nasal Spray 16 gm Bottle NASAL SCH ×2 (10:30→20:40)
[2023-04-19] MEDS: Famotidine 20 MG TAB PO SCH ×2 (10:31→20:05)
[2023-04-19] MEDS: Polyethylene Glycol 3350 17 GM Packet PO SCH (10:32)
[2023-04-19 11:19] LABS: Actual Bicarbonate (HCO3a) 29.3 mEq/L (22-28); Base Excess (BEa) 6.4 mEq/L (-2.0 to +3.0); CO2 Tension 35.9 mmHg (35.0-45.0); Calcium, Ionized (arterial) 1.21 mmol/L (1.12-1.30); Carboxyhemoglobin (COHb) 0.6 gm% (0.0-3.0); Hematocrit-ABG 32 % (36.0-47.0); O2 Tension (PaO2), arterial 63.4 mmHg (> 70.0)
[2023-04-19 11:20] LABS: Potassium - ABG Lab 1.89 mmol/L (3.70-5.30)
[2023-04-19] MEDS: Potassium Chloride 20 MEQ in Premix 1 BAG IVPB SCH ×4 (12:50→18:19)
[2023-04-19 21:59] LABS: Anion Gap 19 mmol/L (10-20); BUN (Urea Nitrogen) 6 mg/dL (9.8-20.1); Calc. Creatinine Clearance 97 mL/min (70-130); Calcium 9.2 mg/dL (7.8-10.44); Carbon Dioxide 21 mmol/L (23-31); Chloride 101 mmol/L (98-107); Estimated GFR 104; Glucose 75 mg/dL (83-110); Potassium 3.3 mmol/L (3.5-5.1); Sodium 138 mmol/L (136-145)
[2023-04-19] MEDS ORDERED: Potassium Chloride 20 MEQ TAB PO SCH (23:45)
[2023-04-20] MEDS: Ipratropium/Albuterol 3 ML NEB NEB SCH ×5 (01:12→23:34)
[2023-04-20 04:42] LABS: Hematocrit 26.8 % (36.0-47.0); Manual Diff?? YES; Mean Corpuscular HGB CONC 29.9 g/dL (32.0-36.0); Mean Corpuscular Hemoglobin 27.8 pg (27.0-31.0); Mean Corpuscular Volume 93.1 fl (78.0-98.0); Mean Platelet Volume 9.7 fL (7.4-10.4); Platelet Count 299 10x3/uL (130-400); RBC Distribution Width 17.2 % (11.5-14.5); Red Blood Cell (RBC) Count 2.88 mill/uL (4.20-5.40); White Blood Cell (WBC) Count 19.1 10x3/uL (4.8-10.8)
[2023-04-20 04:51] LABS: Delete Auto Diff?? YES
[2023-04-20 05:16] LABS: Band 13 % (5-11); CellaVision Operator ID LAB.CLH1; Eosinophils 10 % (0-10); Hypochromia MODERATE=16-30 cells HPF (0-5); Lymphocytes 4 % (21-51); Metamyelocyte 1 % (0-0); Monocytes 5 % (0-10); Myelocyte 3 % (0-0); Neutrophil 62 % (42-75); Platelet Adequacy Comment Platelets Normal; Polychromasia SLIGHT = 2-3 cells HPF (0-2); Promyelocytes 3 % (0-0); Total Cell Count 103
[2023-04-20 05:22] LABS: ALT (SGPT) 8 U/L (8-55); AST (SGOT) 9 U/L (5-34); Albumin 2.2 g/dL (3.4-4.8); Alkaline Phosphatase 108 U/L (40-110); Anion Gap 17 mmol/L (10-20); BUN (Urea Nitrogen) 6 mg/dL (9.8-20.1); Bilirubin, Total 0.2 mg/dL (0.2-1.2); Calc. Creatinine Clearance 100 mL/min (70-130); Calcium 8.8 mg/dL (7.8-10.44); Carbon Dioxide 24 mmol/L (23-31); Chloride 102 mmol/L (98-107); Estimated GFR 104; Glucose 79 mg/dL (83-110); Magnesium 1.9 mg/dL (1.6-2.6); Phosphorus 2.9 mg/dL (2.3-4.7); Protein, Total 5.2 g/dL (5.8-8.1); Sodium 140 mmol/L (136-145)
[2023-04-20] MEDS ORDERED: Magnesium 2 GM/50 ML(in water) 2 GM in Premix 1 BAG IVPB SCH (08:00)
[2023-04-20] MEDS ORDERED: Potassium Chloride 20 MEQ TAB PO SCH ×2 (08:00→14:00)
[2023-04-20] MEDS: Heparin 5,000 UNITS/ML VIAL SC SCH (10:06)
[2023-04-20] MEDS: Cefepime 2 GM in Sodium Chloride 0.9% 100 ML IVPB SCH ×2 (10:06→20:42)
[2023-04-20] MEDS: guaiFENesin ER 600 MG TAB PO SCH ×2 (10:12→20:43)
[2023-04-20] MEDS: Morphine ER 15 MG TAB PO SCH ×2 (10:12→20:42)
[2023-04-20] MEDS: metroNIDAZOLE 500 MG TAB PO SCH ×3 (10:13→20:43)
[2023-04-20] MEDS: Famotidine 20 MG TAB PO SCH (10:14)
[2023-04-20] MEDS: Polyethylene Glycol 3350 17 GM Packet PO SCH (10:14)
[2023-04-20] MEDS: Fluticasone Propionate Nasal Spray 16 gm Bottle NASAL SCH ×2 (10:15→20:45)
[2023-04-20 12:17] LABS: Potassium 3.2 mmol/L (3.5-5.1)
[2023-04-20] MEDS: Dexamethasone 1 MG TAB PO SCH (16:50)
[2023-04-20] MEDS: Senokot S 8.6-50 MG TAB PO SCH (20:44)
[2023-04-21 06:25] LABS: Hematocrit 29.5 % (36.0-47.0); Hemoglobin 8.6 g/dL (12.0-16.0); Manual Diff?? YES; Mean Corpuscular HGB CONC 29.2 g/dL (32.0-36.0); Mean Corpuscular Hemoglobin 27.1 pg (27.0-31.0); Mean Corpuscular Volume 93.1 fl (78.0-98.0); Mean Platelet Volume 9.8 fL (7.4-10.4); Platelet Count 344 10x3/uL (130-400); RBC Distribution Width 16.9 % (11.5-14.5); Red Blood Cell (RBC) Count 3.17 mill/uL (4.20-5.40); White Blood Cell (WBC) Count 20.5 10x3/uL (4.8-10.8)
[2023-04-21] MEDS: Ipratropium/Albuterol 3 ML NEB NEB SCH (06:30)
[2023-04-21 06:31] LABS: Delete Auto Diff?? YES
[2023-04-21 07:25] LABS: Anisocytosis SLIGHT = 6-15 cells HPF (0-5); Band 18 % (5-11); CellaVision Operator ID lab.dlt; Large Platelets 3.9 % (0-5); Lymphocytes 3 % (21-51); Metamyelocyte 4 % (0-0); Monocytes 6 % (0-10); Neutrophil 70 % (42-75); Platelet Adequacy Comment Platelets Normal; Poikilocytosis SLIGHT = 6-15 cells HPF (0-5); Polychromasia SLIGHT = 2-3 cells HPF (0-2); Total Cell Count 103
[2023-04-21 07:46] LABS: ALT (SGPT) 7 U/L (8-55); AST (SGOT) 7 U/L (5-34); Albumin 2.5 g/dL (3.4-4.8); Alkaline Phosphatase 131 U/L (40-110); Anion Gap 14 mmol/L (10-20); BUN (Urea Nitrogen) 9 mg/dL (9.8-20.1); Bilirubin, Total 0.2 mg/dL (0.2-1.2); Calc. Creatinine Clearance 97 mL/min (70-130); Calcium 9.6 mg/dL (7.8-10.44); Carbon Dioxide 27 mmol/L (23-31); Chloride 102 mmol/L (98-107); Estimated GFR 104; Globulin 3.3 g/dL (2.4-3.5); Glucose 186 mg/dL (83-110); Magnesium 2.1 mg/dL (1.6-2.6); Potassium 4.5 mmol/L (3.5-5.1); Protein, Total 5.8 g/dL (5.8-8.1); Sodium 138 mmol/L (136-145)
[2023-04-21] MEDS: Fluticasone Propionate Nasal Spray 16 gm Bottle NASAL SCH ×2 (08:25→21:26)
[2023-04-21] MEDS: Morphine ER 15 MG TAB PO SCH ×2 (08:26→21:25)
[2023-04-21] MEDS: metroNIDAZOLE 500 MG TAB PO SCH ×3 (08:26→21:25)
[2023-04-21] MEDS: Cefepime 2 GM in Sodium Chloride 0.9% 100 ML IVPB SCH ×2 (08:26→21:25)
[2023-04-21] MEDS: Dexamethasone 1 MG TAB PO SCH ×2 (08:27→17:18)
[2023-04-21] MEDS: guaiFENesin ER 600 MG TAB PO SCH ×2 (08:27→21:25)
[2023-04-21] MEDS: Polyethylene Glycol 3350 17 GM Packet PO SCH (08:27)
[2023-04-21] MEDS: Senokot S 8.6-50 MG TAB PO SCH ×2 (08:27→21:25)
[2023-04-21] MEDS ORDERED: Sodium Phosphate 15 MMOL in Sodium Chloride 0.9% 250 ML 250 ML IVPB SCH (08:30)
[2023-04-21] MEDS: PHOS-NAK 1 PKT PACK PO SCH ×2 (08:37→12:58)
[2023-04-21] MEDS ORDERED: FLU VACC QS2023(65UP)/MF59C/PF 60 MCG/0.5 ML SYRINGE IM ONE (09:00)
[2023-04-21] MEDS ORDERED: Ipratropium/Albuterol 3 ML NEB NEB PRN (09:29)
[2023-04-21] MEDS: Morphine IR 10 MG/5 ML UDCUP PO PRN (17:17)
[2023-04-21] MEDS: Sodium Chloride 0.9% 1,000 ML IV SCH (17:17)
[2023-04-22 05:57] LABS: Hematocrit 31.4 % (36.0-47.0); Hemoglobin 9.2 g/dL (12.0-16.0); Manual Diff?? YES; Mean Corpuscular HGB CONC 29.3 g/dL (32.0-36.0); Mean Corpuscular Hemoglobin 27.2 pg (27.0-31.0); Mean Corpuscular Volume 92.9 fl (78.0-98.0); Mean Platelet Volume 9.6 fL (7.4-10.4); Platelet Count 357 10x3/uL (130-400); RBC Distribution Width 17.2 % (11.5-14.5); Red Blood Cell (RBC) Count 3.38 mill/uL (4.20-5.40); White Blood Cell (WBC) Count 21.2 10x3/uL (4.8-10.8)
[2023-04-22 06:00] LABS: Delete Auto Diff?? YES
[2023-04-22 06:41] LABS: Anion Gap 15 mmol/L (10-20); BUN (Urea Nitrogen) 9 mg/dL (9.8-20.1); Calc. Creatinine Clearance 100 mL/min (70-130); Carbon Dioxide 28 mmol/L (23-31); Chloride 99 mmol/L (98-107); Estimated GFR 104; Glucose 111 mg/dL (83-110); Magnesium 1.9 mg/dL (1.6-2.6); Potassium 3.8 mmol/L (3.5-5.1); Sodium 138 mmol/L (136-145)
[2023-04-22 06:48] LABS: Band 23 % (5-11); CellaVision Operator ID LAB.CLH1; Eosinophils 2 % (0-10); Large Platelets 1.9 % (0-5); Lymphocytes 2 % (21-51); Monocytes 3 % (0-10); Myelocyte 1 % (0-0); Neutrophil 65 % (42-75); Platelet Adequacy Comment Platelets Normal; Polychromasia SLIGHT = 2-3 cells HPF (0-2); Promyelocytes 2 % (0-0); Reactive Lymphocytes 2 % (0-10); Total Cell Count 103
[2023-04-22] MEDS ORDERED: Magnesium 2 GM/50 ML(in water) 2 GM in Premix 1 BAG IVPB SCH (08:00)
[2023-04-22] MEDS: Morphine ER 15 MG TAB PO SCH ×2 (09:28→20:24)
[2023-04-22] MEDS: metroNIDAZOLE 500 MG TAB PO SCH (09:28)
[2023-04-22] MEDS: guaiFENesin ER 600 MG TAB PO SCH ×2 (09:28→20:27)
[2023-04-22] MEDS: Polyethylene Glycol 3350 17 GM Packet PO SCH (09:29)
[2023-04-22] MEDS: Dexamethasone 1 MG TAB PO SCH (09:29)
[2023-04-22] MEDS: Cefepime 2 GM in Sodium Chloride 0.9% 100 ML IVPB SCH (09:29)
[2023-04-22] MEDS: Fluticasone Propionate Nasal Spray 16 gm Bottle NASAL SCH ×2 (09:29→20:43)
[2023-04-22] MEDS: Senokot S 8.6-50 MG TAB PO SCH ×2 (09:29→20:27)
[2023-04-22] MEDS ORDERED: Electrolyte Replacement Protocol FS PRN (09:30)
[2023-04-22] MEDS ORDERED: Piperacillin/Tazobactam 3.375 GM in Sodium Chloride 0.9% 100 ML IVPB SCH ×3 (11:15→22:00)
[2023-04-22] MEDS: Sodium Chloride 0.9% 1,000 ML IV SCH (12:15)
[2023-04-22] MEDS: Dexamethasone 4 MG TAB PO SCH (16:43)
[2023-04-22] MEDS: Morphine IR 10 MG/5 ML UDCUP PO PRN (19:12)
[2023-04-22] MEDS: Piperacillin/Tazobactam 3.375 GM in Sodium Chloride 0.9% 100 ML IVPB SCH (20:20)
[2023-04-23] MEDS: Morphine IR 10 MG/5 ML UDCUP PO PRN ×2 (04:22→12:54)
[2023-04-23] MEDS: Piperacillin/Tazobactam 3.375 GM in Sodium Chloride 0.9% 100 ML IVPB SCH ×4 (04:25→21:26)
[2023-04-23] MEDS: Polyethylene Glycol 3350 17 GM Packet PO SCH (09:38)
[2023-04-23] MEDS: guaiFENesin ER 600 MG TAB PO SCH ×2 (09:40→21:25)
[2023-04-23] MEDS: Senokot S 8.6-50 MG TAB PO SCH ×2 (09:41→21:27)
[2023-04-23] MEDS: Morphine ER 15 MG TAB PO SCH ×2 (09:41→21:25)
[2023-04-23] MEDS: Dexamethasone 4 MG TAB PO SCH ×2 (09:43→18:07)
[2023-04-23 10:39] LABS: Hematocrit 30.7 % (36.0-47.0); Hemoglobin 9.1 g/dL (12.0-16.0); Manual Diff?? YES; Mean Corpuscular HGB CONC 29.6 g/dL (32.0-36.0); Mean Corpuscular Hemoglobin 27.7 pg (27.0-31.0); Mean Corpuscular Volume 93.6 fl (78.0-98.0); Mean Platelet Volume 9.7 fL (7.4-10.4); Platelet Count 297 10x3/uL (130-400); RBC Distribution Width 17.2 % (11.5-14.5); Red Blood Cell (RBC) Count 3.28 mill/uL (4.20-5.40); White Blood Cell (WBC) Count 21.8 10x3/uL (4.8-10.8)
[2023-04-23 11:07] LABS: Anion Gap 16 mmol/L (10-20); BUN (Urea Nitrogen) 9 mg/dL (9.8-20.1); Calc. Creatinine Clearance 100 mL/min (70-130); Calcium 9.5 mg/dL (7.8-10.44); Carbon Dioxide 29 mmol/L (23-31); Chloride 100 mmol/L (98-107); Estimated GFR 104; Glucose 79 mg/dL (83-110); Magnesium 2.3 mg/dL (1.6-2.6); Potassium 3.6 mmol/L (3.5-5.1); Sodium 141 mmol/L (136-145)
[2023-04-23 11:13] LABS: Phosphorus 2.6 mg/dL (2.3-4.7)
[2023-04-23 11:16] LABS: Delete Auto Diff?? YES
[2023-04-23 12:10] LABS: Band 17 % (5-11); CellaVision Operator ID LAB.KW3; Eosinophils 6 % (0-10); Large Platelets 3.8 % (0-5); Lymphocytes 7 % (21-51); Metamyelocyte 2 % (0-0); Monocytes 5 % (0-10); Neutrophil 63 % (42-75); Platelet Adequacy Comment Platelets Normal; Platelet Clumps 0.9 % (0-5); Polychromasia SLIGHT = 2-3 cells HPF (0-2); Promyelocytes 1 % (0-0); Smudge Cells 14.2 %; Total Cell Count 106; Vacuoles SLIGHT
[2023-04-23] MEDS: Sodium Chloride 0.9% 1,000 ML IV SCH (12:35)
[2023-04-23] MEDS: Fluticasone Propionate Nasal Spray 16 gm Bottle NASAL SCH ×2 (12:35→21:25)
[2023-04-24] MEDS: Morphine IR 10 MG/5 ML UDCUP PO PRN ×3 (03:08→12:57)
[2023-04-24] MEDS: Piperacillin/Tazobactam 3.375 GM in Sodium Chloride 0.9% 100 ML IVPB SCH ×3 (05:04→20:30)
[2023-04-24 05:57] LABS: Hematocrit 29.3 % (36.0-47.0); Hemoglobin 8.5 g/dL (12.0-16.0); Manual Diff?? YES; Mean Corpuscular Hemoglobin 26.9 pg (27.0-31.0); Mean Corpuscular Volume 92.7 fl (78.0-98.0); Mean Platelet Volume 9.8 fL (7.4-10.4); Platelet Count 237 10x3/uL (130-400); RBC Distribution Width 17.2 % (11.5-14.5); Red Blood Cell (RBC) Count 3.16 mill/uL (4.20-5.40); White Blood Cell (WBC) Count 20.7 10x3/uL (4.8-10.8)
[2023-04-24 06:25] LABS: Anion Gap 14 mmol/L (10-20); BUN (Urea Nitrogen) 7 mg/dL (9.8-20.1); Calc. Creatinine Clearance 100 mL/min (70-130); Calcium 9.1 mg/dL (7.8-10.44); Carbon Dioxide 29 mmol/L (23-31); Chloride 98 mmol/L (98-107); Estimated GFR 104; Glucose 87 mg/dL (83-110); Magnesium 1.9 mg/dL (1.6-2.6); Potassium 3.8 mmol/L (3.5-5.1); Sodium 137 mmol/L (136-145)
[2023-04-24 06:28] LABS: Delete Auto Diff?? YES
[2023-04-24] MEDS ORDERED: Magnesium 2 GM/50 ML(in water) 2 GM in Premix 1 BAG IVPB SCH ×2 (08:00→09:15)
[2023-04-24 08:21] LABS: Band 22 % (5-11); CellaVision Operator ID LAB.KW3; Eosinophils 3 % (0-10); Large Platelets 4.9 % (0-5); Lymphocytes 3 % (21-51); Monocytes 6 % (0-10); Neutrophil 66 % (42-75); Platelet Adequacy Comment Platelets Normal; Polychromasia SLIGHT = 2-3 cells HPF (0-2); Total Cell Count 103
[2023-04-24] MEDS: Sodium Chloride 0.9% 1,000 ML IV SCH (09:09)
[2023-04-24] MEDS: Dexamethasone 4 MG TAB PO SCH ×2 (09:20→18:45)
[2023-04-24] MEDS: guaiFENesin ER 600 MG TAB PO SCH ×2 (09:20→20:31)
[2023-04-24] MEDS: Fluticasone Propionate Nasal Spray 16 gm Bottle NASAL SCH ×2 (09:21→20:32)
[2023-04-24] MEDS: Senokot S 8.6-50 MG TAB PO SCH ×2 (09:22→20:30)
[2023-04-24] MEDS: Polyethylene Glycol 3350 17 GM Packet PO SCH (09:22)
[2023-04-24] MEDS: Morphine ER 15 MG TAB PO SCH ×2 (09:31→20:31)
[2023-04-25] MEDS: Piperacillin/Tazobactam 3.375 GM in Sodium Chloride 0.9% 100 ML IVPB SCH ×3 (03:44→21:14)
[2023-04-25] MEDS: Morphine IR 10 MG/5 ML UDCUP PO PRN ×3 (05:59→17:44)
[2023-04-25] MEDS: Senokot S 8.6-50 MG TAB PO SCH ×2 (09:10→21:15)
[2023-04-25] MEDS: Morphine ER 15 MG TAB PO SCH ×2 (09:10→21:15)
[2023-04-25] MEDS: Polyethylene Glycol 3350 17 GM Packet PO SCH (09:11)
[2023-04-25] MEDS: Dexamethasone 4 MG TAB PO SCH ×2 (09:11→17:45)
[2023-04-25 10:35] LABS: Hematocrit 27.6 % (36.0-47.0); Hemoglobin 8.3 g/dL (12.0-16.0); Manual Diff?? YES; Mean Corpuscular HGB CONC 30.1 g/dL (32.0-36.0); Mean Corpuscular Hemoglobin 27.8 pg (27.0-31.0); Mean Corpuscular Volume 92.3 fl (78.0-98.0); Platelet Count 219 10x3/uL (130-400); RBC Distribution Width 17.3 % (11.5-14.5); Red Blood Cell (RBC) Count 2.99 mill/uL (4.20-5.40); White Blood Cell (WBC) Count 23.1 10x3/uL (4.8-10.8)
[2023-04-25 10:57] LABS: Phosphorus 1.6 mg/dL (2.3-4.7)
[2023-04-25 11:00] LABS: Anion Gap 15 mmol/L (10-20); BUN (Urea Nitrogen) 5 mg/dL (9.8-20.1); Calc. Creatinine Clearance 100 mL/min (70-130); Calcium 8.8 mg/dL (7.8-10.44); Carbon Dioxide 32 mmol/L (23-31); Chloride 97 mmol/L (98-107); Estimated GFR 104; Glucose 120 mg/dL (83-110); Potassium 3.6 mmol/L (3.5-5.1); Sodium 140 mmol/L (136-145)
[2023-04-25 11:35] LABS: Delete Auto Diff?? YES
[2023-04-25 11:59] LABS: Band 7 % (5-11); CellaVision Operator ID LAB.CMB; Eosinophils 5 % (0-10); Large Platelets 8.3 % (0-5); Lymphocytes 2 % (21-51); Metamyelocyte 1 % (0-0); Monocytes 5 % (0-10); Neutrophil 80 % (42-75); Platelet Adequacy Comment Platelets Normal; Platelet Clumps 0.9 % (0-5); Polychromasia SLIGHT = 2-3 cells HPF (0-2); Total Cell Count 108
[2023-04-25] MEDS: guaiFENesin ER 600 MG TAB PO SCH ×2 (13:36→21:15)
[2023-04-25] MEDS: Fluticasone Propionate Nasal Spray 16 gm Bottle NASAL SCH ×2 (13:36→21:16)
[2023-04-25] MEDS: PHOS-NAK 1 PKT PACK PO SCH ×2 (14:10→17:45)
[2023-04-26] MEDS: Piperacillin/Tazobactam 3.375 GM in Sodium Chloride 0.9% 100 ML IVPB SCH ×3 (03:31→21:52)
[2023-04-26] MEDS: Dexamethasone 4 MG TAB PO SCH ×2 (08:10→17:31)
[2023-04-26] MEDS: Morphine ER 15 MG TAB PO SCH ×2 (08:10→21:52)
[2023-04-26] MEDS: guaiFENesin ER 600 MG TAB PO SCH ×2 (08:11→21:52)
[2023-04-26] MEDS: Senokot S 8.6-50 MG TAB PO SCH ×2 (08:11→21:52)
[2023-04-26] MEDS: Polyethylene Glycol 3350 17 GM Packet PO SCH (08:12)
[2023-04-26] MEDS: Fluticasone Propionate Nasal Spray 16 gm Bottle NASAL SCH ×2 (08:13→21:54)
[2023-04-26 10:06] LABS: Hematocrit 28.2 % (36.0-47.0); Hemoglobin 8.5 g/dL (12.0-16.0); Manual Diff?? YES; Mean Corpuscular HGB CONC 30.1 g/dL (32.0-36.0); Mean Corpuscular Hemoglobin 27.3 pg (27.0-31.0); Mean Corpuscular Volume 90.7 fl (78.0-98.0); Mean Platelet Volume 10.2 fL (7.4-10.4); Platelet Count 187 10x3/uL (130-400); RBC Distribution Width 17.2 % (11.5-14.5); Red Blood Cell (RBC) Count 3.11 mill/uL (4.20-5.40); White Blood Cell (WBC) Count 20.7 10x3/uL (4.8-10.8)
[2023-04-26 10:33] LABS: Anion Gap 15 mmol/L (10-20); BUN (Urea Nitrogen) Less than 4 mg/dL (9.8-20.1); Calc. Creatinine Clearance 100 mL/min (70-130); Calcium 8.6 mg/dL (7.8-10.44); Carbon Dioxide 35 mmol/L (23-31); Chloride 92 mmol/L (98-107); Delete Auto Diff?? YES; Estimated GFR 104; Glucose 107 mg/dL (83-110); Phosphorus 1.8 mg/dL (2.3-4.7); Sodium 139 mmol/L (136-145)
[2023-04-26 11:23] LABS: Band 12 % (5-11); CellaVision Operator ID LAB.CMB; Eosinophils 7 % (0-10); Large Platelets 3.5 % (0-5); Lymphocytes 7 % (21-51); Monocytes 5 % (0-10); Neutrophil 68 % (42-75); Ovalocytes SLIGHT = 2-5 cells HPF (0-1); Platelet Adequacy Comment Platelets Normal; Poikilocytosis SLIGHT = 6-15 cells HPF (0-5); Polychromasia SLIGHT = 2-3 cells HPF (0-2); Total Cell Count 115
[2023-04-26] MEDS ORDERED: Potassium Chloride 20 MEQ TAB PO SCH (17:00)
[2023-04-26] MEDS: Morphine IR 10 MG/5 ML UDCUP PO PRN (17:30)
[2023-04-26] MEDS: PHOS-NAK 1 PKT PACK PO SCH ×2 (17:33→22:01)
[2023-04-27] MEDS ORDERED: Potassium Chloride 20 MEQ TAB PO SCH (02:00)
[2023-04-27] MEDS: Piperacillin/Tazobactam 3.375 GM in Sodium Chloride 0.9% 100 ML IVPB SCH ×3 (03:09→21:19)
[2023-04-27] MEDS: Morphine IR 10 MG/5 ML UDCUP PO PRN ×2 (03:20→18:13)
[2023-04-27 06:00] LABS: Hematocrit 28.8 % (36.0-47.0); Hemoglobin 8.6 g/dL (12.0-16.0); Manual Diff?? YES; Mean Corpuscular HGB CONC 29.9 g/dL (32.0-36.0); Mean Corpuscular Hemoglobin 27.7 pg (27.0-31.0); Mean Corpuscular Volume 92.6 fl (78.0-98.0); Mean Platelet Volume 10.3 fL (7.4-10.4); Platelet Count 180 10x3/uL (130-400); RBC Distribution Width 17.2 % (11.5-14.5); Red Blood Cell (RBC) Count 3.11 mill/uL (4.20-5.40); White Blood Cell (WBC) Count 19.7 10x3/uL (4.8-10.8)
[2023-04-27 06:08] LABS: Delete Auto Diff?? YES
[2023-04-27 06:22] LABS: Phosphorus 2.1 mg/dL (2.3-4.7)
[2023-04-27 06:24] LABS: Anion Gap 15 mmol/L (10-20); BUN (Urea Nitrogen) 4 mg/dL (9.8-20.1); Calc. Creatinine Clearance 100 mL/min (70-130); Calcium 8.9 mg/dL (7.8-10.44); Carbon Dioxide 35 mmol/L (23-31); Chloride 92 mmol/L (98-107); Estimated GFR 104; Glucose 103 mg/dL (83-110); Potassium 3.7 mmol/L (3.5-5.1); Sodium 138 mmol/L (136-145)
[2023-04-27 06:32] LABS: Band 21 % (5-11); CellaVision Operator ID LAB.GE; Eosinophils 6 % (0-10); Hypochromia SLIGHT = 6-15 cells HPF (0-5); Large Platelets 2.8 % (0-5); Lymphocytes 4 % (21-51); Metamyelocyte 2 % (0-0); Monocytes 4 % (0-10); Myelocyte 2 % (0-0); Neutrophil 62 % (42-75); Nucleated RBC (Manual Ct) 1 % (0); Platelet Adequacy Comment Platelets Normal; Polychromasia SLIGHT = 2-3 cells HPF (0-2); Reactive Lymphocytes 1 % (0-10); Total Cell Count 107; Vacuoles MODERATE
[2023-04-27] MEDS: guaiFENesin ER 600 MG TAB PO SCH ×2 (09:08→21:18)
[2023-04-27] MEDS: Fluticasone Propionate Nasal Spray 16 gm Bottle NASAL SCH ×2 (09:08→21:18)
[2023-04-27] MEDS: Dexamethasone 4 MG TAB PO SCH ×2 (09:09→17:58)
[2023-04-27] MEDS: Senokot S 8.6-50 MG TAB PO SCH ×2 (09:09→21:18)
[2023-04-27] MEDS: Morphine ER 15 MG TAB PO SCH ×2 (09:09→21:18)
[2023-04-27] MEDS: Polyethylene Glycol 3350 17 GM Packet PO SCH (09:11)
[2023-04-28] MEDS: Piperacillin/Tazobactam 3.375 GM in Sodium Chloride 0.9% 100 ML IVPB SCH ×3 (03:14→20:28)
[2023-04-28 05:23] LABS: Hematocrit 28.7 % (36.0-47.0); Hemoglobin 8.4 g/dL (12.0-16.0); Manual Diff?? YES; Mean Corpuscular HGB CONC 29.3 g/dL (32.0-36.0); Mean Corpuscular Volume 92.3 fl (78.0-98.0); Mean Platelet Volume 10.2 fL (7.4-10.4); Platelet Count 176 10x3/uL (130-400); RBC Distribution Width 17.2 % (11.5-14.5); Red Blood Cell (RBC) Count 3.11 mill/uL (4.20-5.40); White Blood Cell (WBC) Count 19.3 10x3/uL (4.8-10.8)
[2023-04-28 05:36] LABS: Delete Auto Diff?? YES
[2023-04-28 05:53] LABS: Anion Gap 13 mmol/L (10-20); BUN (Urea Nitrogen) 5 mg/dL (9.8-20.1); Calc. Creatinine Clearance 100 mL/min (70-130); Calcium 9.4 mg/dL (7.8-10.44); Carbon Dioxide 36 mmol/L (23-31); Chloride 91 mmol/L (98-107); Estimated GFR 104; Glucose 93 mg/dL (83-110); Potassium 3.6 mmol/L (3.5-5.1); Sodium 136 mmol/L (136-145)
[2023-04-28 06:59] LABS: Anisocytosis SLIGHT = 6-15 cells HPF (0-5); Band 12 % (5-11); CellaVision Operator ID LAB.JMM; Eosinophils 3 % (0-10); Large Platelets 0.9 % (0-5); Lymphocytes 5 % (21-51); Macrocytosis SLIGHT = 6-15 cells HPF (0-5); Monocytes 3 % (0-10); Neutrophil 77 % (42-75); Platelet Adequacy Comment Platelets Normal; Polychromasia MODERATE = 3-4 cells HPF (0-2); Smudge Cells 2.7 %; Total Cell Count 111
[2023-04-28] MEDS: Morphine ER 15 MG TAB PO SCH ×2 (08:22→20:30)
[2023-04-28] MEDS: Dexamethasone 4 MG TAB PO SCH ×2 (08:23→16:27)
[2023-04-28] MEDS: guaiFENesin ER 600 MG TAB PO SCH ×2 (08:23→21:54)
[2023-04-28] MEDS: Senokot S 8.6-50 MG TAB PO SCH ×2 (08:37→20:32)
[2023-04-28] MEDS: Fluticasone Propionate Nasal Spray 16 gm Bottle NASAL SCH ×2 (08:37→21:54)
[2023-04-28] MEDS: Polyethylene Glycol 3350 17 GM Packet PO SCH (08:37)
[2023-04-28] MEDS ORDERED: Morphine IR 10 MG/5 ML UDCUP PO PRN (10:39)
[2023-04-28] MEDS: Morphine 2 MG/ML VIAL SLOW IVP PRN (11:39)
[2023-04-29] MEDS: Piperacillin/Tazobactam 3.375 GM in Sodium Chloride 0.9% 100 ML IVPB SCH ×2 (04:09→11:46)
[2023-04-29] MEDS: Morphine 2 MG/ML VIAL SLOW IVP PRN (04:27)
[2023-04-29 05:23] LABS: Hematocrit 29.1 % (36.0-47.0); Hemoglobin 8.6 g/dL (12.0-16.0); Manual Diff?? YES; Mean Corpuscular HGB CONC 29.6 g/dL (32.0-36.0); Mean Corpuscular Hemoglobin 27.4 pg (27.0-31.0); Mean Corpuscular Volume 92.7 fl (78.0-98.0); Mean Platelet Volume 10.1 fL (7.4-10.4); Platelet Count 178 10x3/uL (130-400); RBC Distribution Width 17.4 % (11.5-14.5); Red Blood Cell (RBC) Count 3.14 mill/uL (4.20-5.40); White Blood Cell (WBC) Count 17.3 10x3/uL (4.8-10.8)
[2023-04-29 05:28] LABS: Delete Auto Diff?? YES
[2023-04-29 06:13] LABS: Band 5 % (5-11); CellaVision Operator ID lab.abc; Eosinophils 4 % (0-10); Hypochromia SLIGHT = 6-15 cells HPF (0-5); Large Platelets 0.9 % (0-5); Lymphocytes 2 % (21-51); Metamyelocyte 1 % (0-0); Monocytes 4 % (0-10); Neutrophil 85 % (42-75); Platelet Adequacy Comment Platelets Normal; Polychromasia SLIGHT = 2-3 cells HPF (0-2); Smudge Cells 4.7 %; Total Cell Count 106
[2023-04-29 08:30] LABS: Anion Gap 17 mmol/L (10-20); BUN (Urea Nitrogen) 5 mg/dL (9.8-20.1); Calc. Creatinine Clearance 100 mL/min (70-130); Calcium 9.4 mg/dL (7.8-10.44); Carbon Dioxide 32 mmol/L (23-31); Chloride 88 mmol/L (98-107); Estimated GFR 104; Glucose 92 mg/dL (83-110); Potassium 3.1 mmol/L (3.5-5.1); Sodium 134 mmol/L (136-145)
[2023-04-29] MEDS: Morphine ER 15 MG TAB PO SCH (08:31)
[2023-04-29] MEDS: Dexamethasone 4 MG TAB PO SCH (08:38)
[2023-04-29] MEDS: Fluticasone Propionate Nasal Spray 16 gm Bottle NASAL SCH (08:38)
[2023-04-29] MEDS: guaiFENesin ER 600 MG TAB PO SCH (08:39)
[2023-04-29] MEDS: Polyethylene Glycol 3350 17 GM Packet PO SCH (08:39)
[2023-04-29] MEDS: Senokot S 8.6-50 MG TAB PO SCH (08:39)
[2023-04-29 09:57] VITALS: BP 106/62; TEMP 98.1
[2023-04-29] MEDS ORDERED: Potassium Chloride 20 MEQ TAB PO SCH (11:15)
[2023-04-29] MEDS ORDERED: Morphine ER 15 MG TAB PO SCH (21:00)
== END 2023-04-29 17:21 | disposition hospice, inpatient (51) | DRG 871 ==
LOC: ERS 15:20 → 2NO 19:51 → OBSVTOIN 04-18 11:01 → MSONC 04-22 15:09
PROVIDERS: ADMIT Internal Medicine; ATTEND Family Medicine
PROC: 3E03329 Introduction of Other Anti-infective into Peripheral Vein, Percutaneous Approach (ICD-10-PCS; 2023-04-18)
PROC: 4A033R1 Measurement of Arterial Saturation, Peripheral, Percutaneous Approach (ICD-10-PCS; principal; 2023-04-19)
DX: A41.9 Sepsis, unspecified organism (principal); E43 Unspecified severe protein-calorie malnutrition; G92.8 Other toxic encephalopathy; J96.01 Acute respiratory failure with hypoxia; Z51.5 Encounter for palliative care; Z66 Do not resuscitate; J69.0 Pneumonitis due to inhalation of food and vomit; J18.9 Pneumonia, unspecified organism; C34.92 Malignant neoplasm of unspecified part of left bronchus or lung; C78.7 Secondary malignant neoplasm of liver and intrahepatic bile duct; C79.51 Secondary malignant neoplasm of bone; Z68.1 Body mass index [BMI] 19.9 or less, adult; E87.6 Hypokalemia; D63.8 Anemia in other chronic diseases classified elsewhere; R65.20 Severe sepsis without septic shock; R16.0 Hepatomegaly, not elsewhere classified; E83.42 Hypomagnesemia; E83.39 Other disorders of phosphorus metabolism; Z79.899 Other long term (current) drug therapy; Z87.891 Personal history of nicotine dependence; Z11.52 Encounter for screening for COVID-19
CPT/HCPCS: 36415; 36416; 70553; 71045; 71250; 80048; 80053; 80202; 81001; 82140; 82805; 83605; 83735; 83880; 84100; 84145; 85025; 85046; 85610; 85730; 86140; 86850; 86870; 86900; 86901; 86922; 87081; 93005; 94640; 94760; 96365; 96366; 96372; 96375; 96376; A9579; G0378; J0692; J1644; J2060; J2272; J2543; J3370; J3370-JW; J3475; J3480; J3490; J7050; J7620; J8540

== ENCOUNTER 2023-04-29 17:21 | Inpatient (IN) | payer MEDICARE, OTHER ==
[2023-04-29] MEDS ORDERED: Ondansetron PF 4 MG/2 ML Vial IVP PRN (18:00)
[2023-04-29] MEDS ORDERED: Haloperidol Lactate 5 MG/ML VIAL SLOW IVP PRN (18:00)
[2023-04-29] MEDS ORDERED: Acetaminophen 650 MG Suppository PR PRN (18:00)
[2023-04-29] MEDS ORDERED: Morphine ER 15 MG TAB PO PRN (18:10)
[2023-04-29] MEDS: Morphine 2 MG/ML VIAL SLOW IVP SCH (21:17)
[2023-04-29] MEDS: Morphine 2 MG/ML VIAL SLOW IVP PRN (22:43)
[2023-04-30] MEDS: Morphine 2 MG/ML VIAL SLOW IVP SCH ×6 (02:15→22:38)
[2023-04-30] MEDS: Dexamethasone 4 MG TAB PO SCH (10:26)
[2023-04-30] MEDS: Lorazepam 2 MG/ML VIAL SLOW IVP PRN (20:27)
[2023-04-30] MEDS: Morphine 2 MG/ML VIAL SLOW IVP PRN (20:28)
[2023-05-01] MEDS: Morphine 2 MG/ML VIAL SLOW IVP SCH ×6 (01:37→20:20)
[2023-05-01] MEDS: Dexamethasone 4 MG TAB PO SCH (09:22)
[2023-05-02] MEDS: Morphine 2 MG/ML VIAL SLOW IVP SCH ×7 (00:17→23:20)
[2023-05-02] MEDS: Scopolamine 1 mg/72 hour Patch TOP PRN (00:26)
[2023-05-02] MEDS: Lorazepam 2 MG/ML VIAL SLOW IVP PRN ×4 (00:26→16:34)
[2023-05-02] MEDS: Dexamethasone 4 MG TAB PO SCH (14:32)
[2023-05-03] MEDS: Morphine 2 MG/ML VIAL SLOW IVP SCH ×5 (04:37→19:38)
[2023-05-03] MEDS: Dexamethasone 4 MG TAB PO SCH (10:22)
[2023-05-04] MEDS: Morphine 2 MG/ML VIAL SLOW IVP SCH ×5 (02:43→20:00)
[2023-05-04 09:32] VITALS: BP 119/78; TEMP 98.3
[2023-05-04] MEDS: Scopolamine 1 mg/72 hour Patch TOP PRN (09:45)
[2023-05-04] MEDS: Dexamethasone 4 MG TAB PO SCH (13:31)
== END 2023-05-04 20:01 | disposition expired | DRG 951 ==
LOC: MSONC 17:21
PROVIDERS: ADMIT Family Medicine; ATTEND Family Medicine
DX: Z51.5 Encounter for palliative care (principal); A41.9 Sepsis, unspecified organism; C34.90 Malignant neoplasm of unspecified part of unspecified bronchus or lung; Z66 Do not resuscitate; R41.82 Altered mental status, unspecified; R09.02 Hypoxemia; E87.6 Hypokalemia; R53.1 Weakness; Z79.899 Other long term (current) drug therapy; Z87.891 Personal history of nicotine dependence
CPT/HCPCS: J2060; J2272